=== PATIENT | male | born 1970 | race Caucasian/White ===

== ENCOUNTER → 2020-05-26 10:00 | Outpatient (BNVA) | payer BC, SELFPAY | PROVIDERS: Visit Provider Internal Medicine | DX: K75.81 Nonalcoholic steatohepatitis (NASH) (principal); E11.9 Type 2 diabetes mellitus without complications; Z80.0 Family history of malignant neoplasm of digestive organs | CPT/HCPCS: 80053; 80061; 85025 ==

== ENCOUNTER → 2020-06-11 12:30 | Outpatient (BNVA) | payer BC, SELFPAY | PROVIDERS: Visit Provider Internal Medicine | DX: Z20.828 Contact with and (suspected) exposure to other viral communicable diseases (principal) | CPT/HCPCS: 87635 ==

== ENCOUNTER 2020-06-14 07:59 | Day surgery (SDC) | payer BC, SELFPAY ==
[2020-06-11 09:45] VITALS: BMI 26.5
[2020-06-14] MEDS: sodium chloride 0.9% 1,000 ML 30 ML IV (08:13)
[2020-06-14 08:17] VITALS: BP 125/85; PULSE 53; RESP 18; TEMP 36.1; O2SAT 97
--- NOTE | 2020-06-14 08:31 | ANES.PREANE2 ---
Pre-Anesthetic Assessment Pre-Anesthetic Assessment: Height/Weight: Height 1.78 m Weight 83.915 kg Temp Pulse Resp BP Pulse Ox 97.0 F L 53 L 18 125/85 97 06/14/20 08:17 06/14/20 08:17 06/14/20 08:17 06/14/20 08:17 06/14/20 08:17 Preop Diagnosis: dysphagia Proposed Procedure: Operation Date: 06/14/20 09:30 Proposed Procedures p EGD Dilation W/ Bougie [id number] Z80.0(Not Applicable) - Alexis Oneill MD s Colonoscopy(Not Applicable) - Alexis Oneill MD Familial anesthetic complications: None Was Beta Joshua taken within 24 hours: N/A Last intake: Intake Last Liquid Date 06/13/20 Last Liquid Time 23:00 Last Solid Date 06/12/20 Social: Social History: No alcohol and No tobacco Exam: Pre-Anes Outpt Exam: alert, oriented x 3, clear to auscultation bilaterally and regular rate & rhythm Airway: Cervical ROM: WNL MP: 3 Dentition: Full Pulmonary: Comments: Patient states he aspirated some cheeze-its one night while in bed about a month ago which lead to sternal burning that night. Over the next few day he states he coughed up cheeze-its. He did not become ill, short of breath, febrile, or go to the hospital. Lungs are clear to auscultation and he's in no respiratory distress. CV/HEM: CV/HEM: None reported GI: GI: GERD Metabolic: Comments: hemolysis noted on CMP leading to increased potassium Anesthetic Plan: ASA status: 1 Anesthesia: MAC Risk of > 500 ml blood loss (7ml/kg in children): No Meds/Allergies Current Medications: Current Medications Generic Name Dose Route Start Last Admin Trade Name Freq PRN Reason Stop Dose Admin Sodium Chloride 1,000 mls @ 30 ml s/hr 06/14/20 08:15 06/14/20 08:13 Sodium Chloride 0.9% IV 30 mls/hr .Q24H ROSIBEL Administration PFSH Anesthesia PFSH: Family History (Updated 05/26/20 @ 09:39 by GOSIA Del Castillo) Father Cancer Hypertension Social History (Updated 05/26/20 @ 09:40 by GOSIA Del Castillo) Smoking and tobacco status: never smoked Alcohol intake: current Alcohol intake frequency: holidays/special occasions only Adopted: No Marital status: Number of children: 2 service: No History of recent travel: No Data Anesthesia Cardiac Studies: No Data to Display
--- NOTE | 2020-06-14 09:10 | W.PM.OPSUD ---
Surgery/Procedure H&P Update DATE OF PROCEDURE: June 14, 2020 DATE H&P PERFORMED: 05/26/20 PREOP DIAGNOSIS: dysphagia PLANNED PROCEDURE: Operation Date: 06/14/20 09:30 Proposed Procedures p EGD Dilation W/ Bougie [id number] Z80.0(Not Applicable) - Alexis Oneill MD s Colonoscopy(Not Applicable) - Alexis Oneill MD
[2020-06-14 10:14] VITALS: BP 125/90; PULSE 64; RESP 16; TEMP 36.1; O2SAT 97
--- NOTE | 2020-06-14 10:50 | ANE.PACU2 ---
Inpatient post-anesthesia follow up: Airway intact: Yes Vital signs: Temperature 97 F Pulse Rate 64 Respiratory Rate 16 Blood Pressure 125/90 Pulse Oximetry 97 Oxygen Delivery Me thod Nasal Cannula Oxygen Flow Rate Fraction of Inspir ed Oxygen Hydration adequate: Yes Nausea and vomiting: No Pain level: 1 Mental status: Baseline
== END 2020-06-14 10:50 | disposition home or self-care (01) ==
PROVIDERS: Visit Provider Internal Medicine
PROC: 0DJD8ZZ Inspection of Lower Intestinal Tract, Via Natural or Artificial Opening Endoscopic (ICD-10-PCS; CPT 45378; 2020-06-14 09:30)
DX: R13.10 Dysphagia, unspecified (principal); Z80.0 Family history of malignant neoplasm of digestive organs; G24.9 Dystonia, unspecified; K22.2 Esophageal obstruction; K21.9 Gastro-esophageal reflux disease without esophagitis; K75.81 Nonalcoholic steatohepatitis (NASH); E11.9 Type 2 diabetes mellitus without complications
CPT/HCPCS: 12345; 43235; 45378; J2704; J3490; J7030

== ENCOUNTER 2023-11-28 07:12 | Outpatient (CLI) | payer BC, SELFPAY ==
[2023-11-28 07:24] VITALS: BMI 29.9
--- NOTE | 2023-11-28 07:28 | ECG_ITS ---
[facility] Test Date: 2023-11-28 Pat Name: Rufus Roman Department: Room: Gender: Male Bill Hiker: : 1970 Requested By: Alexis Oneill Order Number: [id number] Davies MD: Emely Mcadams M.D. Interpretive Statements NAME OF STUDY: EXERCISE SESTAMIBI STRESS TEST INDICATION: Atypical Chest Pain PROCEDURE: The baseline electrocardiogram showed sinus bradycardia with a normal ST Ts.. At the baseline, the patient's blood pressure was 128/81 mm Hg with a heart rate of 54. The patient exercised for 9 minutes and 58 seconds on a standard Leander protocol. Patient attained a maximum heart rate of 156 beats per minute(94% of the maximum predicted heart rate) with a blood pressure at the peak exercise of 170/72 mm Hg. The EKG at the peak exercise revealed no significant changes. Patient did not have any chest pain or any significant arrhythmis with the exercise Sestamibi was injected 1 minute prior to the peak exercise During the recovery phase, there were no new changes. Blood pressure at the end of the recovery phase was 113/78 mm Hg with a heart rate of 80 per minute. CONCLUSION: 1. No significant EKG changes with the treadmill exercise 2. No exercise-induced chest pain or cardiac arrhythmia 3. Good exercise tolerance, attained a maximum of 13.5 METs 4. Sestamibi/Sestamibi perfusion results pending; see separate report. Electronically Signed On 12-01-2023 19:16:33 CDT by Emely Mcadams M.D. [email or web address]
--- NOTE | 2023-11-28 07:28 | NMCV_ITS ---
NM gurjit perf SPECT r/s* [id number] Rufus Roman Age: 53 Gender: M : 1970 Exam Date: 11/28/2023 08:06 Ordering Phys: Alexis Oneill MD Technologist: CHETNA Yeung Exam Location: [facility] Indications: CHEST PAIN STRESS TEST Please see separate stress test report in [facility] for full findings IMAGE PROTOCOL Rest/Stress 1 Exercise Day Radiopharmaceutical Dose (mCi) Administration Site Administered by Rest: Tc-99m 10.8 IV CHETNA Johnson Sestamibi Stress:Tc-99m 32.8 IV CHETNA Johnson Sestamibi Rest: 28-Nov-2023 60 Discovery 630 Stress: 28-Nov-2023 30 Discovery 630 0.4mg Lexiscan. Images obtained in supine and prone position. SPECT RESULTS Technical Quality: Excellent Raw Data Analysis: Normal Image Corrections: No attenuation or motion correction applied Summed Stress Score: 0 Summed Rest Score: 2 Summed Difference Score: 0 PERFUSION FINDINGS SPECT images demonstrate homogeneous tracer distribution throughout the myocardium. FUNCTIONAL RESULTS (calculated via Gated SPECT) Stress Image LV EF (%): 62 Stress EDV (mL):117 TID: 0.75 Stress ESV (mL):44 FUNCTIONAL FINDINGS: There is normal left ventricular systolic function. IMPRESSIONS 1. Normal myocardial perfusion imaging with no evidence of ischemia 2. LV systolic function is normal Jordan Lopez MD (Electronically Signed) Final Date: 28 November 2023 10:55 S
[2023-11-28 09:15] VITALS: BP 145/76; PULSE 81
== END 2023-11-28 07:13 | disposition home or self-care (01) ==
LOC: CDL 07:15
PROVIDERS: PCP Internal Medicine; Visit Provider Internal Medicine
DX: R07.89 Other chest pain (principal)
CPT/HCPCS: 36415; 78452; 93017; A9500